=== PATIENT | male | born 1970 | race Caucasian/White ===

== ENCOUNTER 2016-08-15 04:22 | Emergency (ER) | payer BC ==
[~2016-08-15] VITALS: Ht 182.9 cm; Wt 99.8 kg
[~2016-08-15 04:22] MED LIST: PROVENTIL HFA6.7 GM INH; ZYRTEC10 MG PO
== END 2016-08-15 08:15 | disposition short-term general hospital (02) ==
LOC: ER 04:22
DX: T78.2XXA Anaphylactic shock, unspecified, initial encounter (principal)
CPT/HCPCS: J2405; J2930